=== PATIENT | female | born 1955 | race Caucasian/White ===

== ENCOUNTER → 2018-04-22 12:54 | Outpatient (REF) | payer MEDICARE, SELFPAY ==
[2018-04-22 21:39] LABS: Abs Immature Grans 0.01 k/cumm (0.0-0.09); Absolute Basophil Count 0.03 k/cumm (0.0-0.2); Absolute Lymphocyte Count 1.77 k/cumm (1.2-3.4); Absolute Monocyte Count 0.39 k/cumm (0.11-0.7); Absolute Neutrophil Count 4.91 k/cumm (1.2-6.7); Basophils % 0.4; Eosinophils % 5.3; HCT 36.7 % (36.0-46.0); HGB 12.3 g/dL (12.0-15.5); Immature Grans % 0.1; Lymphocytes % 23.6; Mean Corp. HGB Concentration 33.5 g/dL (32.0-36.0); Mean Corpuscular Hemoglobin 30.1 pg (27.0-33.0); Mean Corpuscular Volume 89.7 fL (80-95); Mean Platelet Volume 10.8 fL (8.0-11.0); Monocytes % 5.2; Neutrophils % 65.4; Platelet Count 204 x1000/uL (130-400); RBC 4.09 m/cumm (4.00-5.20); RBC Distribution Width 11.5 % (11.7-14.6); White Blood Cell Count 7.51 k/cumm (4.4-10.8)
[2018-04-22 21:57] LABS: ALT 16 U/L (12-78); AST 13 U/L (15-37); Albumin 4.2 g/dL (3.4-5.0); Alkaline Phosphatase 69 U/L (46-116); Anion Gap 6.9 mmol/L (3-11); BUN 12 mg/dL (7-18); Bilirubin, Total 0.3 mg/dL (0.2-1.0); CO2 30.1 mmol/L (21.0-32.0); CREATININE 0.92 mg/dL (0.55-1.02); Calcium 8.9 mg/dL (8.5-10.1); Chloride 103 mmol/L (98-107); Cholesterol 153 mg/dL (50-200); Glucose 100 mg/dL (70-100); HDL Cholesterol 65 mg/dL (40-60); LDL CHOLESTEROL 79 mg/dL (<100); Potassium 4.3 mmol/L (3.5-5.1); Sodium 140 mmol/L (136-145); TSH 10.63 uIU/mL (0.358-3.74); Total Protein 6.9 g/dL (6.4-8.2); Triglyceride 66 mg/dL (30-150)
== END ==
LOC: NCHCN 12:54
PROVIDERS: PCP Nurse Practitioner Family; Visit Provider Physician Assistant Medical
DX: E03.9 Hypothyroidism, unspecified (principal); R63.4 Abnormal weight loss; R53.83 Other fatigue
CPT/HCPCS: 80053; 80061; 83721; 84443; 85025

== ENCOUNTER 2018-06-20 11:25 | Outpatient (CLI) | payer MEDICARE, SELFPAY ==
--- NOTE | 2018-06-20 11:40 | DI.RAD_ITS ---
SYMPTOM/DIAGNOSIS: CHRONIC NECK PAIN, M54.2, LOW BACK PAIN, M54.5 CERVICAL SPINE: Five views were obtained. There is a mild cervical kyphosis. There is disc space narrowing at C 5-6 and C 6-7. Moderate hypertrophic and degenerative changes are seen involving the endplates, particularly at these levels. Mild facet joint hypertrophy noted throughout the cervical region. Neural foramina appear fairly well maintained on oblique views. No other significant bony abnormality is seen. CONCLUSION: Degenerative changes as described above. LUMBOSACRAL SPINE: Five views were obtained. There is a moderate bi convex thoracolumbar scoliosis. SI joints show mild degenerative changes. There is disc space narrowing at L 5-S 1 and at L 2-3 as well. There are prominent hypertrophic endplate degenerative changes noted throughout the lumbar region. Moderate facet hypertrophic degenerative changes noted as well. No spondylolysis or spondylolisthesis. CONCLUSION: Scoliosis and degenerative changes of the lumbar spine.
== END 2018-06-20 11:45 ==
PROVIDERS: PCP Nurse Practitioner Family; Visit Provider Specialist/Technologist Athletic Trainer
DX: M54.2 Cervicalgia (principal); M54.5 Low back pain; M41.25 Other idiopathic scoliosis, thoracolumbar region; M50.322 Other cervical disc degeneration at C5-C6 level; M51.37 Other intervertebral disc degeneration, lumbosacral region
CPT/HCPCS: 72050; 72110

== ENCOUNTER 2022-09-25 08:12 | Emergency (ER) | payer MEDICARE, SELFPAY ==
[2022-09-25 08:19] VITALS: BP 124/75; PULSE 80; RESP 16; TEMP 36.5; O2SAT 99
[2022-09-25 08:51] LABS: Abs Immature Grans 0.02 10^3/uL (0.0-0.06); Absolute Basophil Count 0.02 10^3/uL (0.0-0.2); Absolute Eosinophil Count 0.01 10^3/uL (0.0-0.7); Absolute Lymphocyte Count 1.11 10^3/uL (1.2-3.4); Absolute Monocyte Count 0.27 10^3/uL (0.1-0.8); Absolute Neutrophil Count 3.18 10^3/uL (1.2-6.7); Basophils % 0.4; Eosinophils % 0.2; HCT 31.5 % (36.0-46.0); HGB 11.2 g/dL (11.2-15.7); Immature Grans % 0.4; Lymphocytes % 24.1; MCH 31.4 pg (27.0-33.0); MCHC 35.6 % (32.0-36.0); MCV 88 fL (80-95); MPV 8.8 fL (8.0-11.0); Monocytes % 5.9; Platelet Count 326 10^3/uL (130-400); RBC 3.57 10^6/uL (3.93-5.22); RDW 12.6 % (11.7-14.6); RDW-SD 40.9 fL; WBC 4.61 10^3/uL (4.4-10.8)
--- NOTE | 2022-09-25 09:06 | NUR.NOTE ---
Nursing Note: Neto [phone] for sandrine
[2022-09-25 09:10] LABS: ALT 19 U/L (14-59); AST 20 U/L (15-37); Albumin 3.9 g/dL (3.4-5.0); Alkaline Phosphatase 38 U/L (46-116); Anion Gap 11.4 mmol/L (3-11); BUN 15 mg/dL (7-18); CO2 29.6 mmol/L (21.0-32.0); CREATININE 0.8 mg/dL (0.55-1.02); Calcium 8.9 mg/dL (8.5-10.1); Chloride 98 mmol/L (98-107); Estimated GFR 81.72 (mL/min/1.73m2); Glucose 87 mg/dL (74-106); Lipase 286 U/L (73-393); Magnesium 2.2 mg/dL (1.8-2.4); Sodium 139 mmol/L (136-145); Total Protein 7.5 g/dL (6.4-8.2)
[2022-09-25 09:11] LABS: Potassium 2.7 mmol/L (3.5-5.1)
--- NOTE | 2022-09-25 09:45 | DI.CT_ITS ---
Exam(s) CT ABDOMEN PELVIS WO EXAM: CT ABDOMEN PELVIS WO CLINICAL HISTORY: left abd pain, diarrhea, weight loss. TECHNIQUE: Imaging Protocol: Axial computed tomography images with coronal and sagittal reformatted images were created and reviewed. COMPARISON: None. FINDINGS: Examination limited by a paucity of abdominal fat. ABDOMEN: Lung Bases: Bilateral basilar infiltrates are present. There are calcified granuloma in the lung bas es. Liver: Normal density. No measurable mass. Gallbladder and biliary tract: No radiodense calculus or biliary ductal dilation. Pancreas: Normal density, no abnormal calcifications or inflammatory process. Spleen: Normal. Kidneys: Normal size, contour and axis.No radiodense stones or obstructive uropathy. No masses seen. Adrenal glands: No mass is seen. Lymph nodes: Within normal limits. Abdominal Aorta: Abdominal portion non-dilated. Mild atherosclerosis. PELVIS: Bladder:Symmetric distention, no gross wall thickening. Bowel: No evidence of bowel obstruction. There is mild thickening of the wall of the mid sigmoid col on. No pericolonic inflammatory changes are seen. The bowel is nondistended in this region which ma y account for the wall thickening. There is also question of thickening of the wall of the proximal stomach. No evidence of appendicitis. Peritoneal cavity: No ascites, collection or mesenteric inflammatory response. No free air. Reproductive organs: Unremarkable as visualized. Bones: Within normal limits. There is a right convex curvature of the lower thoracic and lumbar spine . Soft Tissues: Within normal limits. IMPRESSION: 1. There is mild thickening of the wall of the sigmoid colon. This may be due to underdistention. O utpatient barium enema and/or colonoscopy is recommended for further evaluation. No inflammatory kavita nges are seen to suggest colitis at this time. 2. Question of mild thickening of the wall of the proximal stomach. This may reflect gastritis or un derdistention. Upper barium GI is recommended for further evaluation. 3. Bilateral pulmonary infiltrates. The findings are suspicious for pneumonia. Please correlate cli nically. Atelectasis should also be considered. RADIATION DOSE DELIVERED: 617.52mGy.cm Total DLP DATA REPOSITORY: All CT scans at this facility are submitted to the National Radiology Data Registry (NRDR) Dose Index Registry (DIR) with the [employer] (A[employer]). RADIATION OPTIMIZATION: All CT scans at this facility use at least one of these dose optimization te chniques: automated exposure control; mA and/or kV adjustment per patient size (includes targeted exa ms where dose is matched to clinical indication); or iterative reconstruction.
[2022-09-25] MEDS: Potassium Chloride 20 MEQ TABCR PO ×2 (10:00→14:35)
[2022-09-25] MEDS: Lactated Ringers 500 ML 1000 ML IV (10:00)
[2022-09-25 10:33] LABS: Source Nasal/Nares
--- NOTE | 2022-09-25 10:35 | ED.GENADUL_ITS ---
Discharge Plan Disposition Patient Disposition: Home Condition: Stable Discharge Details Clinical Impression: COVID-19, Diarrhea, Acute dehydration, Acute hypokalemia Primary Care Provider: Natalia Gonzalez ED Provider: Umberto Gómez Home Meds and New Rx's Prescriptions: No Action No Known Home Meds Discharge Instructions Instructions: Dehydration (ED), Hypokalemia (ED), Acute Diarrhea (ED), COVID-19 (Coronavirus Disease 2019) (ED) Additional Instructions: You have COVID-19. Please use the antiviral paxlovid - dose according to label. Your initial dose was given today in the emergency department. Your next dose should be taken late tonight. Today you were severely dehydrated. Please be sure to drink plenty of fluids in order to stay hydrated. Any fluid volume lost in diarrhea needs to be replaced orally. I recommend hydrating with Gatorade and water. CT of your abdomen pelvis was performed today and revealed the followin. There is mild thickening of the wall of the sigmoid colon.? This may be due to underdistention.? Outpatient barium enema and/or colonoscopy is recommended for further evaluation.? No inflammatory changes are seen to suggest colitis at this time. 2. Question of mild thickening of the wall of the proximal stomach.? This may reflect gastritis or underdistention.? Upper barium GI is recommended for further evaluation.? 3. Bilateral pulmonary infiltrates.? The findings are suspicious for pneumonia.? Please correlate clinically.? Atelectasis should also be considered. Please follow-up with general surgery to schedule additional outpatient diagnostic studies as recommended. Please contact your primary care physician to arrange follow-up. Return to the ER immediately for any worsening or new concerning symptoms. Referrals: Natalia Gonzalez, CHAPLAINCY [Primary Care Provider] - Discharge Data Discharge Date/Time-TO BE ENTERED AT DEPARTURE: 09/25/22 16:36 Medical Decision Making 1035 --67-year-old female here with diarrhea since 09/07/2022, generally feeling weak and achy, sick with COVID. She has no respiratory symptoms and no fever. Patient has had unintentional 15 pound weight loss since onset of symptoms. Patient peers clinically dehydrated. I will give IV fluid bolus. She has some tenderness abdominal pain left side. Consider diverticular disease. Plan to obtain CT of the abdomen pelvis to rule out acute surgical process. Patient provided informed refusal of contrast dye. Labs reviewed and hypokalemia noted. Potassium 2.7. I will give potassium 20 meq IV and 20 meq by mouth. -- Patient having body aches. I will treat with Toradol [address] of the abdomen pelvis interpreted by radiology: 1. There is mild thickening of the wall of the sigmoid colon.? This may be due to underdistention.? Outpatient barium enema and/or colonoscopy is recommended for further roscoe luation.? No inflammatory changes are seen to suggest colitis at this time. 2. Question of mild thickening of the wall of the proximal stomach.? This may reflect gastritis or underdistention.? Upper barium GI is recommended for further evaluation.? 3. Bilateral pulmonary infiltrates.? The findings are suspicious for pneumonia.? Please correlate clinically.? Atelectasis should also be considered. 1400 --labs reviewed and patient is positive for COVID. Plan to initiate treatment with paxlovid. Patient provided informed consent. Hypokalemia was treated with potassium supplement and on repeat chemistry has significantly improved and now 3.3. I will give another dose of 20 mill equivalents orally. Plan for discharge with instruction for continued oral rehydration. HPI General Mode of arrival: ambulatory . Date/Time Provider Initiated Documentation: 09/25/22 08:35 . Limitations to Documentation: no limitations . Information obtained by: patient . HPI Narrative: 67-year-old female presents with chief complaint of loose stool. Patient notes diarrhea since 09/07/2022. She states diarrhea is loose and brown and yellow. Denies bright red blood per rectum and melena. She does have associated left- sided abdominal discomfort that is described as mild to moderate. Patient states she has aching muscles all over. She feels generally weak and sick. She denies fever. Related Data Home Medications Medication Instructions Recorded Confirmed Unknown [No Known Home Meds] 09/25/22 09/25/22 Allergies Allergy/AdvReac Type Severity Reaction Status Date / Time No Known Allergies Allergy Unverified 09/25/22 08:24 General Stated Complaint: Abd Prob MARIANNA: 3 Review of Systems All systems reviewed & are unremarkable except as noted in HPI and below Constitutional Constitutional: Denies fever(s) Gastrointestinal Gastrointestinal: Reports as per HPI and Denies vomiting PFSH All Active Problems (Updated 09/25/22 @ 14:13 by Umberto Gómez MD) COVID-19 (Acute) Diarrhea (Acute) Acute dehydration (Acute) Acute hypokalemia (Acute) Social History Smoking/Tobacco Use Status: Never Smoking risk assessment performed?: Yes Alcohol Intake: never Drug use: Never Substance use type: does not use Do you feel safe at home: Yes Do you feel safe in your relationship?: Yes Exam Const General: cooperative and no acute distress HENMT Mouth: mucous membranes dry Eyes Conjunctivae: normal conjunctivae Sclera: normal sclerae Neck Neck: trachea midline Resp Effort & Inspection: normal respiratory effort Auscultation: clear to auscultation bilaterally, no rales, no rhonchi and no wheezes Cardio Rate: regular rate and not tachycardic Rhythm: regular rhythm GI Palpation: soft, not firm, no guarding, no masses and not rigid Skin General skin exam: no rashes or lesions noted Neuro General: patient alert, patient awake and tone normal Extrem General: no edema Psych Appearance: grossly normal Course Vital Signs Vital signs: Vital Signs Temperature 36.5 C 09/25/22 08:19 Pulse 80 09/25/22 08:19 Respiratory Rate 16 09/25/22 08:19 Blood Pressure 124/75 09/25/22 08:19 Pulse Oximetry 99 09/25/22 08:19 Temperature 36.5 C 09/25/22 08:19 Temperature Source Temporal Artery Scan 09/25/22 08:19 Pulse 80 09/25/22 08:19 Respiratory Rate 16 09/25/22 08:19 Respiratory Effort 09/25/22 08:21 Blood Pressure 124/75 09/25/22 08:19 Blood Pressure Position Sitting 09/25/22 08:19 Pulse Oximetry 99 09/25/22 08:19 Oxygen Delivery Method Room Air 09/25/22 08:19 Oxygen Flow Rate 0 09/25/22 08:19 Pain Level 10 09/25/22 08:21 Lab/Test Results Lab/Test Results: Laboratory Tests Range/Units 09/25/22 09/25/22 09/25/22 08:40 08:40 08:40 WBC (4.4-10.8) 10^3/uL 4.61 RBC (3.93-5.22) 10^6/uL 3.57 L Hgb (11.2-15.7) g/dL 11.2 Hct (36.0-46.0) % 31.5 L MCV (80-95) fL 88 MCH (27.0-33.0) pg 31.4 MCHC (32.0-36.0) % 35.6 RDW (11.7-14.6) % 12.6 Plt Count (130-400) 10^3/uL 326 MPV (8.0-11.0) fL 8.8 Immature Gran % 0.4 Neutrophils % 69.0 Lymphocytes % 24.1 Monocytes % 5.9 Eosinophils % 0.2 Basophils % 0.4 Nucleated RBC % (0.0-0.3) % 0.0 Absolute Neutrophils (1.2-6.7) 10^3/uL 3.18 Absolute Lymphocytes (1.2-3.4) 10^3/uL 1.11 L Absolute Monocytes (0.1-0.8) 10^3/uL 0.27 Absolute Eosinophils (0.0-0.7) 10^3/uL 0.01 Absolute Basophils (0.0-0.2) 10^3/uL 0.02 Sodium (136-145) mmol/L 139 Potassium (3.5-5.1) mmol/L 2.7 L* Chloride (98-107) mmol/L 98 Carbon Dioxide (21.0-32.0) mmol/L 29.6 Anion Gap (3-11) mmol/L 11.4 H BUN (7-18) mg/dL 15 Creatinine (0.55-1.02) mg/dL 0.8 Est GFR (CKD-EPI 2020) (mL/min/1.73m2) 81.72 Glucose (74-106) mg/dL 87 Calcium (8.5-10.1) mg/dL 8.9 Magnesium (1.8-2.4) mg/dL 2.2 Cancelled Total Bilirubin (0.2-1.0) mg/dL 1.0 AST (15-37) U/L 20 ALT (14-59) U/L 19 Alkaline Phosphatase (46-116) U/L 38 L Total Protein (6.4-8.2) g/dL 7.5 Albumin (3.4-5.0) g/dL 3.9 Lipase (73-393) U/L 286 COVID-19 Source Range/Units 09/25/22 10:28 WBC (4.4-10.8) 10^3/uL RBC (3.93-5.22) 10^6/uL Hgb (11.2-15.7) g/dL Hct (36.0-46.0) % MCV (80-95) fL MCH (27.0-33.0) pg MCHC (32.0-36.0) % RDW (11.7-14.6) % Plt Count (130-400) 10^3/uL MPV (8.0-11.0) fL Immature Gran % Neutrophils % Lymphocytes % Monocytes % Eosinophils % Basophils % Nucleated RBC % (0.0-0.3) % Absolute Neutrophils (1.2-6.7) 10^3/uL Absolute Lymphocytes (1.2-3.4) 10^3/uL Absolute Monocytes (0.1-0.8) 10^3/uL Absolute Eosinophils (0.0-0.7) 10^3/uL Absolute Basophils (0.0-0.2) 10^3/uL Sodium (136-145) mmol/L Potassium (3.5-5.1) mmol/L Chloride (98-107) mmol/L Carbon Dioxide (21.0-32.0) mmol/L Anion Gap (3-11) mmol/L BUN (7-18) mg/dL Creatinine (0.55-1.02) mg/dL Est GFR (CKD-EPI 2020) (mL/min/1.73m2) Glucose (74-106) mg/dL Calcium (8.5-10.1) mg/dL Magnesium (1.8-2.4) mg/dL Total Bilirubin (0.2-1.0) mg/dL AST (15-37) U/L ALT (14-59) U/L Alkaline Phosphatase (46-116) U/L Total Protein (6.4-8.2) g/dL Albumin (3.4-5.0) g/dL Lipase (73-393) U/L COVID-19 Source Nasal/Nares
[2022-09-25 11:05] LABS: COVID-19 PCR POSITIVE (Negative)
[2022-09-25] MEDS: POTASSIUM CHLORIDE 20 MEQ/100 ML BAG 50 MEQ IVPB (11:15)
[2022-09-25] MEDS: Lactated Ringers 500 ML IV (11:25)
[2022-09-25] MEDS: Ketorolac 30 MG/ML VIAL IVP (12:46)
[2022-09-25 13:52] LABS: Anion Gap 11.9 mmol/L (3-11); BUN 13 mg/dL (7-18); CO2 26.1 mmol/L (21.0-32.0); CREATININE 0.8 mg/dL (0.55-1.02); Calcium 8.8 mg/dL (8.5-10.1); Chloride 100 mmol/L (98-107); Estimated GFR 81.72 (mL/min/1.73m2); Glucose 83 mg/dL (74-106); Potassium 3.3 mmol/L (3.5-5.1); Sodium 138 mmol/L (136-145)
--- NOTE | 2022-09-25 14:12 | NUR.NOTE ---
Nursing Note: Referral faxed to [facility] Surgery for needs barium studieis/thickening of sigmoid colon/thickening of wall of stomach, in 1 week.
== END 2022-09-25 16:36 | disposition home or self-care (01) ==
PROVIDERS: Emergency Provider Student in an Organized Health Care Education/Training Program; PCP Nurse Practitioner Family
DX: U07.1 COVID-19 (principal); E86.0 Dehydration; E87.6 Hypokalemia
CPT/HCPCS: 36415; 80048; 80053; 83690; 87635; 96361; 96365; 96366; 96375; 99284; 74176; 83735; 85025; J1885; J3480

== ENCOUNTER 2023-03-23 18:55 | Outpatient (REF) | payer MEDICARE, SELFPAY ==
[2023-03-23 13:10] LABS: Abs Immature Grans 0.13 10^3/uL (0.0-0.06); Absolute Basophil Count 0.07 10^3/uL (0.0-0.2); Absolute Eosinophil Count 0.32 10^3/uL (0.0-0.7); Absolute Lymphocyte Count 2.26 10^3/uL (1.2-3.4); Absolute Monocyte Count 0.59 10^3/uL (0.1-0.8); Absolute Neutrophil Count 6.83 10^3/uL (1.2-6.7); Basophils % 0.7; Eosinophils % 3.1; HCT 32.8 % (36.0-46.0); HGB 11.1 g/dL (11.2-15.7); Immature Grans % 1.3; Lymphocytes % 22.2; MCH 28.5 pg (27.0-33.0); MCHC 33.8 % (32.0-36.0); MCV 84 fL (80-95); Monocytes % 5.8; Neutrophils % 66.9; Platelet Count 307 10^3/uL (130-400); RBC 3.89 10^6/uL (3.93-5.22); RDW 13.8 % (11.7-14.6); RDW-SD 42.7 fL
[2023-03-23 13:36] LABS: Anion Gap 8.6 mmol/L (3-11); BUN 8 mg/dL (7-18); CO2 28.4 mmol/L (21.0-32.0); CREATININE 0.9 mg/dL (0.55-1.02); Calcium 8.7 mg/dL (8.5-10.1); Chloride 104 mmol/L (98-107); Estimated GFR 70.95 (mL/min/1.73m2); Glucose 92 mg/dL (74-106); Sodium 141 mmol/L (136-145); TSH (W/Ref FT4) 71.36 uIU/mL (0.36-3.74)
[2023-03-23 13:41] LABS: Potassium 2.6 mmol/L (3.5-5.1)
[2023-03-23 14:03] LABS: FREE T4 0.61 ng/dL (0.76-1.46)
== END 2023-03-23 18:56 | disposition home or self-care (01) ==
LOC: LBN 18:55
PROVIDERS: Physical Therapy Assistant; PCP Nurse Practitioner Family; Visit Provider Nurse Practitioner Family
DX: R10.9 Unspecified abdominal pain (principal); U07.1 COVID-19
CPT/HCPCS: 80048; 84439; 84443; 85025

== ENCOUNTER 2023-11-13 04:30 | Outpatient (CLI) | payer MEDICARE, SELFPAY ==
[2023-11-13 11:12] LABS: Abs Immature Grans 0.02 10^3/uL (0.0-0.06); Absolute Basophil Count 0.03 10^3/uL (0.0-0.2); Absolute Eosinophil Count 0.04 10^3/uL (0.0-0.7); Absolute Lymphocyte Count 1.84 10^3/uL (1.2-3.4); Absolute Monocyte Count 0.32 10^3/uL (0.1-0.8); Absolute Neutrophil Count 3.36 10^3/uL (1.2-6.7); Basophils % 0.5; Eosinophils % 0.7; HCT 40.3 % (36.0-46.0); HGB 13.4 g/dL (11.2-15.7); Immature Grans % 0.4; Lymphocytes % 32.8; MCH 28.3 pg (27.0-33.0); MCHC 33.3 % (32.0-36.0); MCV 85 fL (80-95); MPV 8.8 fL (8.0-11.0); Monocytes % 5.7; Neutrophils % 59.9; Platelet Count 247 10^3/uL (130-400); RBC 4.74 10^6/uL (3.93-5.22); RDW 11.7 % (11.7-14.6); RDW-SD 35.9 fL; WBC 5.61 10^3/uL (4.4-10.8)
[2023-11-13 12:25] LABS: ALT 69 U/L (14-59); AST 32 U/L (15-37); Albumin 3.7 g/dL (3.4-5.0); Alkaline Phosphatase 65 U/L (46-116); Anion Gap 11.9 mmol/L (3-11); BUN 14 mg/dL (7-18); Bilirubin, Total 0.4 mg/dL (0.2-1.0); CO2 27.1 mmol/L (21.0-32.0); CREATININE 0.7 mg/dL (0.55-1.02); Calcium 9.2 mg/dL (8.5-10.1); Calculated LDL 121 mg/dL (<100); Chloride 104 mmol/L (98-107); Cholesterol 208 mg/dL (<200); Estimated GFR 95.32 (mL/min/1.73m2); Ferritin 244 ng/mL (8-252); Glucose 112 mg/dL (74-106); HDL Cholesterol 64 mg/dL (40-60); Potassium 3.7 mmol/L (3.5-5.1); Sodium 143 mmol/L (136-145); TSH (W/Ref FT4) 0.05 uIU/mL (0.36-3.74); Total Protein 7.5 g/dL (6.4-8.2); Triglyceride 116 mg/dL (<150); Vitamin B12 720 pg/mL (193-986)
[2023-11-13 12:47] LABS: FREE T4 1.52 ng/dL (0.76-1.46)
== END 2023-11-13 04:31 | disposition home or self-care (01) ==
LOC: LBO 04:30
PROVIDERS: Absent Provider Nurse Practitioner; PCP Nurse Practitioner; Visit Provider Nurse Practitioner
DX: E03.9 Hypothyroidism, unspecified (principal); D64.9 Anemia, unspecified
CPT/HCPCS: 36415; 80053; 80061; 82607; 82728; 84439; 84443; 85025

== ENCOUNTER 2024-03-13 02:25 | Outpatient (CLI) | payer MEDICARE, MEDICAID, SELFPAY ==
[2024-03-13 11:07] LABS: ALT 75 U/L (14-59); AST 39 U/L (15-37); Albumin 4.4 g/dL (3.4-5.0); Alkaline Phosphatase 88 U/L (46-116); Bilirubin, Direct 0.2 mg/dL (0.0-0.2); Bilirubin, Total 0.63 mg/dL (0.2-1.0); Total Protein 8.1 g/dL (6.4-8.2)
[2024-03-13 11:51] LABS: FREE T4 1.32 ng/dL (0.76-1.46)
[2024-03-14 13:17] LABS: Hepatitis C Ab w Rflx HCV PCR Negative (Negative)
== END 2024-03-13 02:26 | disposition home or self-care (01) ==
LOC: LBO 02:25
PROVIDERS: PCP Nurse Practitioner; Referring Provider Nurse Practitioner; Visit Provider Nurse Practitioner
DX: R79.89 Other specified abnormal findings of blood chemistry (principal); E03.9 Hypothyroidism, unspecified
CPT/HCPCS: 36415; 80076; 86803; 84439; 84443